=== PATIENT | male | born 1995 | race Caucasian/White ===

== ENCOUNTER 2016-09-29 06:54 | Emergency (ER) | payer OTHER ==
[2016-09-29 06:59] VITALS: BP 139/89; PULSE 82; RESP 18; TEMP 97.6
[2016-09-29] MEDS ORDERED: predniSONE 50 MG TAB PO STA (07:29)
[2016-09-29] MEDS ORDERED: FAMOTIDINE 20 MG TAB PO STA (07:29)
[2016-09-29] MEDS ORDERED: diphenhydrAMINE 50 MG/ML 1 ML VIAL IM STA (07:29)
--- NOTE | 2016-09-29 07:29 | ED ---
General Adult HPI - General Chief complaint: Skin/Abscess/Foreign Body Stated complaint: Hives Time Seen by Provider: 09/29/16 07:00 Source: patient, RN notes reviewed Mode of arrival: ambulatory Limitations: no limitations - History of Present Illness Initial comments: This is a 21-year-old male who presents emergency department because of hives and severe itching. Patient states about a week ago he had the hives he came to the emergency department and was treated for but the hives come back and chest and he can't stop itching. Patient denies any difficulty breathing or shortness of breath per patient denies any throat swelling or tightness in the throat. Patient denies any fever chills per patient denies changing any foods soaps or detergents but he states his been going home and reevaluate the situation. Patient denies any pain patient denies any headache patient denies chest pain patient denies abdominal pain. Patient denies any recent fever chills or cough. - Related Data Home Medications Medication Instructions Recorded Confirmed buPROPion HCL [buPROPion HCL SR] 1 tab PO DAILY 09/23/16 09/23/16 cloNIDine HCL [Catapres] 1 tab PO DAILY 09/23/16 09/23/16 Previous Rx's Medication Instructions Recorded diphenhydrAMINE [Benadryl] 50 mg PO QID PRN #20 capsule 09/23/16 methylPREDNISolone [Medrol Dose 4 mg PO DIRECTED #1 pack 09/23/16 Pack] predniSONE 40 mg PO DAILY #8 tab 09/29/16 Allergies Allergy/AdvReac Type Severity Reaction Status Date / Time No Known Allergies Allergy Verified 09/29/16 06:58 Review of Systems ROS Statement: Those systems with pertinent positive or pertinent negative responses have been documented in the HPI. ROS Other: All systems not noted in ROS Statement are negative. Past Medical History Past Medical History: No Reported History History of Any Multi-Drug Resistant Organisms: None Reported Past Surgical History: Orthopedic Surgery Additional Past Surgical History / Comment(s): LEFT FOREARM sx 2009 Past Psychological History: Bipolar Smoking Status: Current every day smoker Past Alcohol Use History: None Reported Past Drug Use History: Marijuana General Exam - General Exam Comments Initial Comments: GENERAL: Patient is well-developed and well-nourished. Patient is nontoxic and well- hydrated and is in mild distress. ENT: Neck is soft and supple. No significant lymphadenopathy is noted. Oropharynx is clear. Moist mucous membranes. EYES: The sclera were anicteric and conjunctiva were pink and moist. Extraocular movements were intact and pupils were equal round and reactive to light. PULMONARY: Unlabored respirations. Good breath sounds bilaterally. No audible rales rhonchi or wheezing was noted. CARDIOVASCULAR: There is a regular rate and rhythm without any murmurs gallops or rubs. ABDOMEN: Soft and nontender with normal bowel sounds. No palpable organomegaly was noted. There is no palpable pulsatile mass. SKIN: Patient has hives diffusely on his back arms and chest and abdomen. NEUROLOGIC: Patient is alert and oriented x3. MUSCULOSKELETAL: Normal extremities with adequate strength and full range of motion LYMPHATICS: No significant lymphadenopathy is noted PSYCHIATRIC: Normal psychiatric evaluation. Limitations: no limitations Course Vital Signs 09/29/16 06:57 Temperature 97.6 F Pulse Rate 82 Respiratory 18 Rate Blood Pressure 139/89 O2 Sat by Pulse 99 Oximetry Disposition Clinical Impression: Allergic reaction Disposition: HOME SELF-CARE Instructions: Allergies (ED) Additional Instructions: Patient should use Benadryl when necessary for itching Prescriptions: predniSONE 40 mg PO DAILY #8 tab Referrals: Ulises Robert MD [Primary Care Provider] - 1-2 days
== END 2016-09-29 07:52 | disposition home or self-care (01) ==
LOC: EC 06:54
DX: T78.40XA Allergy, unspecified, initial encounter (principal); L50.9 Urticaria, unspecified; Z79.899 Other long term (current) drug therapy; F31.9 Bipolar disorder, unspecified; F17.200 Nicotine dependence, unspecified, uncomplicated; X58.XXXA Exposure to other specified factors, initial encounter
CPT/HCPCS: 96372; 99283; J1200; J7512

== ENCOUNTER 2016-10-05 11:15 | Emergency (ER) | payer OTHER ==
[2016-10-05] MEDS ORDERED: KETOROLAC 30 MG/ML 1 ML VIAL IVP STA (11:45)
[2016-10-05] MEDS ORDERED: diphenhydrAMINE 50 MG/ML 1 ML VIAL IVP STA (11:45)
[2016-10-05] MEDS ORDERED: SODIUM CHLORIDE 0.9% 1,000 ML IV STA (11:45)
[2016-10-05] MEDS ORDERED: FAMOTIDINE 20 MG/2 ML VIAL IV STA (12:21)
--- NOTE | 2016-10-05 12:21 | ED ---
Chest Pain HPI - General Chief Complaint: Chest Pain Stated Complaint: Chest pain Time Seen by Provider: 10/05/16 11:36 Source: patient Mode of arrival: wheelchair Limitations: no limitations - History of Present Illness Initial Comments: This 21-year-old white male presents with a complaint of some chest pain. This is in the midsternal region. His describes as a tightness. It seems radiate into his abdomen at times. Onset occurred yesterday. He states that it is intermittent in nature and is oftentimes very sharp and well last approximate 2- 3 seconds. Is worse with certain movements. He relates it is fairly severe in nature. He further relates that he's had a recent rash. This was diagnosed as hives approximately 12 days ago and then was also seen approximately 4 days ago. He initially is placed on Medrol Dosepak and then later prednisone. He states that these haven't seemed to help his rash. It is very pruritic in nature. It apparently coming ago. It is diffuse in nature but somewhat worse on his back. He denies any history DVT or PE. He denies any leg pain or swelling. He denies any known new recent medications other than taking an unknown cream for scabies last month. He denies any shortness of breath. No other complaints or modifying factors. - Related Data Home Medications Medication Instructions Recorded Confirmed buPROPion HCL [buPROPion HCL SR] 150 mg PO DAILY 09/23/16 10/05/16 cloNIDine HCL [Catapres] 0.1 mg PO DAILY 09/23/16 10/05/16 predniSONE 50 mg PO DAILY 10/05/16 10/05/16 Previous Rx's Medication Instructions Recorded diphenhydrAMINE [Benadryl] 50 mg PO QID PRN #20 capsule 09/23/16 Famotidine [Pepcid] 20 mg PO BID #20 tablet 10/05/16 hydrOXYzine HCL [Atarax] 50 mg PO QID PRN #30 tab 10/05/16 traMADol HCl [Ultram] 50 - 100 mg PO Q6H PRN #15 tab 10/05/16 Allergies Allergy/AdvReac Type Severity Reaction Status Date / Time No Known Allergies Allergy Verified 10/05/16 11:31 Review of Systems ROS Statement: Those systems with pertinent positive or pertinent negative responses have been documented in the HPI. ROS Other: All systems not noted in ROS Statement are negative. Past Medical History Past Medical History: No Reported History History of Any Multi-Drug Resistant Organisms: None Reported Past Surgical History: Orthopedic Surgery Additional Past Surgical History / Comment(s): LEFT FOREARM sx 2009 Past Psychological History: Bipolar Smoking Status: Current every day smoker Past Alcohol Use History: None Reported Past Drug Use History: Marijuana General Exam - General Exam Comments Initial Comments: GENERAL: The patient is well nourished and well hydrated. VITAL SIGNS: Heart rate, blood pressure, respiratory rate reviewed as recorded in nurse's notes. EYES: Pupils are round and reactive. Extraocular movements are intact. No conjunctival / lid redness or swelling. ENT: No external evidence of injury, swelling, or ecchymosis. Airway is patent. Throat is clear. NECK: Nontender. No swelling or evidence of injury. No subcutaneous emphysema. Trachea is midline. No thyroid mass. HEART: Regular rate and rhythm. Good peripheral pulses. LUNGS/CHEST: Breath sounds clear and equal bilaterally. No rales, rhonchi, or wheezes. No ecchymosis, subcutaneous emphysema, or tenderness. ABDOMEN: Abdomen soft without tenderness. No palpable masses or organomegaly. No peritoneal signs. No abdominal wall swelling or ecchymosis. EXTREMITIES: No extremity tenderness. Normal muscle tone and function. No thoracolumbar tenderness. NEUROLOGIC: Sensation is grossly intact. Cranial nerve exam reveals face is symmetrical, tongue is midline, speech is clear. SKIN: There is a diffuse hive-like rash diffusely. PSYCHIATRIC: Alert and oriented. Appropriate behavior and judgment. Limitations: no limitations Course Vital Signs 10/05/16 11:23 Temperature 97.2 F L Pulse Rate 92 Respiratory 16 Rate Blood Pressure 140/94 O2 Sat by Pulse 97 Oximetry Chest Pain MDM - MDM The patient was seen and examined. All diagnostics were reviewed. An IV is started and he does receive some Benadryl as well as some Toradol and Pepcid. The EKG shows a normal sinus rhythm with a sinus arrhythmia at a rate of 79. There is no acute ST-T wave changes identified. There is no evidence of pericarditis. The [place] interval is 146, QRS duration is 96, and QTc interval is 399. The chest x-ray does not show any acute process. The laboratory showed an elevation of the white blood cell count at 22.9. The exact symptomatology of his symptom complex is not definitively determined. It does appear that he does have hives. These are much improved with the Benadryl and Pepcid. The possibility of this being related to a viral exanthem certainly is possible as well. Is really felt as though he may have a degree of pleuritis which could be viral in nature. The possibility of bronchitis as possible. The leukocytosis may be related to steroid use as well. Nevertheless, it is felt as though he may benefit from an embedded trial and follow up with primary care physician and dermatology. He is agreeable to this plan and leaves in no distress. He's much improved on recheck. Disposition Clinical Impression: Chest pain, Rash, Hives, Leukocytosis, Hypertension Disposition: HOME SELF-CARE Condition: Good Instructions: Chest Pain (ED), Pleurisy (ED), Acute Rash (ED), Hypertension (ED ) Additional Instructions: Please stop the Benadryl. Prescriptions: Famotidine [Pepcid] 20 mg PO BID #20 tablet hydrOXYzine HCL [Atarax] 50 mg PO QID PRN #30 tab PRN Reason: Itching traMADol HCl [Ultram] 50 - 100 mg PO Q6H PRN #15 tab PRN Reason: Pain Referrals: Ulises Robert MD [Primary Care Provider] - 1-2 days Gregory Lucero MD [STAFF PHYSICIAN] - 10/08/16 Time of Disposition: 13:58
[2016-10-05 12:51] LABS: Basophils # (A) 0.1 k/uL (0-0.2); Basophils % (A) 0 %; CH 26.1; CHCM 32.9; Eosinophils # (A) 0.1 k/uL (0-0.7); Eosinophils % (A) 1 %; HCT 52.6 % (39.0-53.0); HDW 2.35; HGB 17.1 gm/dL (13.0-17.5); Luc # (Auto) 0.17; Luc % (Auto) 1; Lymphocytes # (A) 4.2 k/uL (1.0-4.8); Lymphocytes % (A) 18 %; MCH 25.9 pg (25.0-35.0); MCHC 32.6 g/dL (31.0-37.0); MCV 79.6 fL (80.0-100.0); Mean Platelet Volume 6.8; Monocytes # (A) 0.9 k/uL (0-1.0); Monocytes % (A) 4 %; Neutrophils # (A) 17.5 k/uL (1.3-7.7); Neutrophils % (A) 77 %; RDW 12.9 % (11.5-15.5); WBC 22.9 k/uL (3.8-10.6); WBC (Perox) 23.08
[2016-10-05 12:55] LABS: Partial Thromboplastin Time 23.1 sec (22.0-30.0); Prothrombin Time 10.4 sec (9.0-12.0)
[2016-10-05 13:01] LABS: ALT 56 U/L (21-72); AST 22 U/L (17-59); Alkaline Phosphatase 71 U/L (38-126); Anion Gap 10 mmol/L; Blood Urea Nitrogen 19 mg/dL (9-20); Calcium 9.2 mg/dL (8.4-10.2); Carbon Dioxide 27 mmol/L (22-30); Chloride 104 mmol/L (98-107); Glucose 93 mg/dL (74-99); Magnesium 1.8 mg/dL (1.6-2.3); Non-African American GFR(MDRD) >60 (>60 ml/min/1.73 sqM); Potassium 3.8 mmol/L (3.5-5.1); Sodium 141 mmol/L (137-145); Total Bilirubin 0.5 mg/dL (0.2-1.3); Total Protein 6.6 g/dL (6.3-8.2)
--- NOTE | 2016-10-05 13:02 | XR ---
EXAMINATION TYPE: XR chest 2V DATE OF EXAM: 10/05/2016 12:59 PM COMPARISON: NONE HISTORY: Chest pain for 2 days TECHNIQUE: Frontal and lateral views of the chest are obtained. FINDINGS: There is no focal air space opacity, pleural effusion, or pneumothorax seen. The cardiac silhouette size is within normal limits. The osseous structures are intact. IMPRESSION: No acute cardiopulmonary process.
[2016-10-05 13:11] LABS: Creatine Kinase 31 U/L (55-170)
[2016-10-05 13:24] LABS: Creatine Kinase MB 0.2 ng/mL (0.0-2.4); Troponin I <0.012 ng/mL (0.000-0.034)
[2016-10-05 14:26] VITALS: BP 136/80; PULSE 85; RESP 18; TEMP 98.2
== END 2016-10-05 14:19 | disposition home or self-care (01) ==
LOC: EC 11:15
DX: R07.89 Other chest pain (principal); I10 Essential (primary) hypertension; D72.829 Elevated white blood cell count, unspecified; R21 Rash and other nonspecific skin eruption; F17.200 Nicotine dependence, unspecified, uncomplicated; Z79.52 Long term (current) use of systemic steroids; Z79.899 Other long term (current) drug therapy
CPT/HCPCS: 99285; 96374; 96375 ×2; 96361 ×2; 36415; 93005; 80053; 82550; 82553; 83735; 84484; 85025; 85610; 85730; 71020; J1200; J1885

== ENCOUNTER 2016-10-07 20:32 | Observation (INO) | payer OTHER ==
[2016-10-07] MEDS ORDERED: SODIUM CHLORIDE 0.9% 1,000 ML IV ONE (21:27)
[2016-10-07 21:55] LABS: Basophils # (A) 0.1 k/uL (0-0.2); Basophils % (A) 0 %; CH 26.4; CHCM 34.2; Eosinophils # (A) 0.2 k/uL (0-0.7); Eosinophils % (A) 1 %; HCT 48.9 % (39.0-53.0); HDW 2.31; HGB 16.4 gm/dL (13.0-17.5); Luc # (Auto) 0.12; Luc % (Auto) 1; Lymphocytes # (A) 2.5 k/uL (1.0-4.8); Lymphocytes % (A) 14 %; MCHC 33.5 g/dL (31.0-37.0); MCV 77.4 fL (80.0-100.0); Mean Platelet Volume 7.5; Monocytes # (A) 0.5 k/uL (0-1.0); Monocytes % (A) 3 %; Neutrophils # (A) 14.6 k/uL (1.3-7.7); Neutrophils % (A) 81 %; RBC 6.31 m/uL (4.30-5.90); RDW 12.6 % (11.5-15.5); WBC (Perox) 17.48
[2016-10-07 22:01] LABS: INR 1.2 (<1.1); Prothrombin Time 11.6 sec (9.0-12.0)
[2016-10-07 22:04] LABS: ALT 40 U/L (21-72); AST 18 U/L (17-59); Alkaline Phosphatase 66 U/L (38-126); Anion Gap 10 mmol/L; Blood Urea Nitrogen 16 mg/dL (9-20); Calcium 9.3 mg/dL (8.4-10.2); Carbon Dioxide 28 mmol/L (22-30); Chloride 98 mmol/L (98-107); Glucose 99 mg/dL (74-99); Non-African American GFR(MDRD) >60 (>60 ml/min/1.73 sqM); Potassium 4.3 mmol/L (3.5-5.1); Sodium 136 mmol/L (137-145); Total Bilirubin 1.9 mg/dL (0.2-1.3); Total Protein 6.7 g/dL (6.3-8.2)
[2016-10-07] MEDS ORDERED: KETOROLAC 30 MG/ML 1 ML VIAL IVP STA (22:48)
--- NOTE | 2016-10-07 22:49 | ED ---
General Adult HPI - General Chief complaint: Fever Stated complaint: Hives - Revisit Time Seen by Provider: 10/07/16 20:53 Source: patient, family, RN notes reviewed, old records reviewed Mode of arrival: wheelchair Limitations: physical limitation - History of Present Illness Initial comments: 21-year-old male presenting for diffuse body rash. Patient states he can see multiple times for rash over the past couple weeks. He states it started as evaluation after scabies he was treated for this and that is improved. However he has had several return of hives that she's been evaluated for. He states that a new type of rash began suddenly yesterday and has spread over his entire body. This rash is now currently painful. States also had some fevers and chills associated with this. He denies any nausea or vomiting. He denies any chest pain or shortness of breath. He was recently on steroids which did not seem to improve his prior rashes.. - Related Data Home Medications Medication Instructions Recorded Confirmed cloNIDine HCL [Catapres] 0.1 mg PO DAILY 09/23/16 10/07/16 diphenhydrAMINE [Benadryl] 50 mg PO Q4H 10/07/16 10/07/16 Previous Rx's Medication Instructions Recorded Famotidine [Pepcid] 20 mg PO BID #20 tablet 10/05/16 hydrOXYzine HCL [Atarax] 50 mg PO QID PRN #30 tab 10/05/16 Allergies Allergy/AdvReac Type Severity Reaction Status Date / Time No Known Allergies Allergy Verified 10/07/16 20:49 Review of Systems ROS Statement: Those systems with pertinent positive or pertinent negative responses have been documented in the HPI. ROS Other: All systems not noted in ROS Statement are negative. Past Medical History Past Medical History: No Reported History History of Any Multi-Drug Resistant Organisms: None Reported Past Surgical History: Orthopedic Surgery Additional Past Surgical History / Comment(s): LEFT FOREARM sx 2009 Past Psychological History: Bipolar Smoking Status: Current every day smoker Past Alcohol Use History: None Reported Past Drug Use History: Marijuana General Exam - General Exam Comments Initial Comments: General: Awake and Alert. No acute distress. Does not appear acutely ill. Eyes: KORTNEY, EOM intact. No nystagmus. No scleral icterus. HENT: Atraumatic, normocephalic. Mucous membranes moist. Trachea midline. Neck: The neck is supple, there is no tenderness or JVD. Cardiovascular: Regular rate and rhythm. No murmur, rub, or gallop is appreciated. Distal pulses intact. Respiratory: Lungs are clear to auscultation bilaterally. No wheezes, rales, rhonchi. No respiratory distress. Gastrointestinal: Soft, Nontender. No rebound or guarding. Non-distended. No masses or organomegaly noted. No CVA tenderness. Musculoskeletal: No tenderness. Normal ROM. No gross deformity. No strength deficits. Neurological: A&Ox3. CN II-XII grossly intact, There are no obvious motor or sensory deficits. Coordination appears grossly intact. Speech is normal. Skin: There is diffuse body involvement of all extremities and abdomen and torso of a papular rash with red borders and internal blanching consistent with target lesions of erythema multiforme. There is no oral mucosal involvement at this time. No other rash is noted. Psychiatric: Cooperative, appropriate mood & affect, normal judgment. Limitations: physical limitation Course Vital Signs 10/07/16 20:46 Temperature 101.2 F H Pulse Rate 111 H Respiratory 18 Rate Blood Pressure 150/83 O2 Sat by Pulse 98 Oximetry Medical Decision Making - Medical Decision Making 21-year-old male presenting for diffuse rash consistent with erythema multiforme. Uncertain inciting factor for this rash. Patient has had multiple different medications over the past several weeks for various visits to the ER. He was also recently restarted on 2 medications for bipolar disorder. He does not believe Lamictal as well as medications. Lab workup was performed showing significant leukocytosis. Is possible there is underlying infectious etiology of this condition today about his likely viral. Patient started with IV fluids and anti-inflammatories. Although patient meets for SIRS criteria, sepsis is questionable at this time. Pt is started empirically on acyclovir and IVF. Will require further monitoring and evaluation. Given uncertain etiology and diffuse involvement of this rash plan for admission for further evaluation and treatment. Patient was reevaluated, remained stable during his course in the ED. Updated on results and plan for admission. Patient is agreeable with this plan. Page placed to Dr. Mata. Patient information and plan signed out overnight physician Dr. Barrett pending callback from Dr. Mata. Will defer empiric antibiotic or steroid therapy to admitting team. - Lab Data Result diagrams: 10/07/16 21:45 10/07/16 21:45 Lab Results 10/07/16 10/07/16 10/07/16 Range/Units 21:45 21:45 21:45 WBC 18.0 H (3.8-10.6) k/uL RBC 6.31 H (4.30-5.90) m/uL Hgb 16.4 (13.0-17.5) gm/dL Hct 48.9 (39.0-53.0) % MCV 77.4 L (80.0-100.0) fL MCH 26.0 (25.0-35.0) pg MCHC 33.5 (31.0-37.0) g/dL RDW 12.6 (11.5-15.5) % Plt Count 245 (150-450) k/uL Neutrophils % 81 % Lymphocytes % 14 % Monocytes % 3 % Eosinophils % 1 % Basophils % 0 % Neutrophils # 14.6 H (1.3-7.7) k/uL Lymphocytes # 2.5 (1.0-4.8) k/uL Monocytes # 0.5 (0-1.0) k/uL Eosinophils # 0.2 (0-0.7) k/uL Basophils # 0.1 (0-0.2) k/uL PT 11.6 (9.0-12.0) sec INR 1.2 (<1.1) Sodium 136 L (137-145) mmol/L Potassium 4.3 (3.5-5.1) mmol/L Chloride 98 (98-107) mmol/L Carbon Dioxide 28 (22-30) mmol/L Anion Gap 10 mmol/L BUN 16 (9-20) mg/dL Creatinine 0.93 (0.66-1.25) mg/dL Est GFR (MDRD) Af Amer >60 (>60 ml/min/1.73 sqM) Est GFR (MDRD) Non-Af >60 (>60 ml/min/1.73 sqM) Glucose 99 (74-99) mg/dL Calcium 9.3 (8.4-10.2) mg/dL Total Bilirubin 1.9 H (0.2-1.3) mg/dL AST 18 (17-59) U/L ALT 40 (21-72) U/L Alkaline Phosphatase 66 (38-126) U/L Total Protein 6.7 (6.3-8.2) g/dL Albumin 3.9 (3.5-5.0) g/dL Disposition Clinical Impression: Erythema multiforme, Fever, Leukocytosis Disposition: ADMITTED IP TO THIS HOSP Condition: Stable Referrals: Ulises Robert MD [Primary Care Provider] - 1-2 days Decision to Admit Reason: Admit from [facility]
[2016-10-07] MEDS ORDERED: ACYCLOVIR SODIUM 750 MG in SODIUM CHLORIDE 0.9% 250 ML IV ONE (22:53)
[2016-10-07] MEDS ORDERED: MORPHINE SULFATE 4 MG/ML SYRINGE IV PRN (23:04)
[2016-10-07] MEDS ORDERED: ACETAMINOPHEN TAB 325 MG TAB PO PRN (23:04)
[2016-10-07] MEDS ORDERED: NALOXONE 0.4 MG/ML 1 ML VIAL IV PRN (23:04)
[2016-10-08] MEDS: methylPREDNISolone SOD SUCCI 125 MG/2 ML VIAL IV SCH ×5 (01:16→23:06)
[2016-10-08] MEDS: HEPARIN SODIUM,PORCINE 5,000 UNIT/ML 1 ML VIAL SQ SCH ×4 (01:17→23:07)
[2016-10-08] MEDS: diphenhydrAMINE 50 MG CAP PO PRN ×4 (01:34→23:06)
[2016-10-08] MEDS: VANCOMYCIN 1,000 MG in SODIUM CHLORIDE 0.9% 250 ML IVPB ONE ×2 (02:06→03:12)
[2016-10-08] MEDS: CEFEPIME 2 GM in SODIUM CHLORIDE 0.9% 50 ML IVPB SCH ×2 (02:20→09:09)
[2016-10-08] MEDS: LACTATED RINGERS 1,000 ML IV SCH ×4 (05:13→19:44)
[2016-10-08 07:37] VITALS: RESP 16
[2016-10-08] MEDS: KETOROLAC 30 MG/ML 1 ML VIAL IVP PRN ×2 (07:58→16:45)
[2016-10-08 08:45] LABS: Basophils % (A) 0 %; CH 26.2; CHCM 33.3; Eosinophils % (A) 0 %; HDW 2.29; Luc # (Auto) 0.05; Luc % (Auto) 0; Lymphocytes % (A) 7 %; MCH 25.8 pg (25.0-35.0); MCHC 32.6 g/dL (31.0-37.0); MCV 79.1 fL (80.0-100.0); Mean Platelet Volume 7.5; Monocytes # (A) 0.3 k/uL (0-1.0); Monocytes % (A) 2 %; Neutrophils # (A) 12.7 k/uL (1.3-7.7); Neutrophils % (A) 90 %; RBC 5.82 m/uL (4.30-5.90); RDW 12.8 % (11.5-15.5); WBC 14.1 k/uL (3.8-10.6); WBC (Perox) 14.05
[2016-10-08 08:51] LABS: Anion Gap 9 mmol/L; Blood Urea Nitrogen 19 mg/dL (9-20); Carbon Dioxide 26 mmol/L (22-30); Chloride 104 mmol/L (98-107); Glucose 131 mg/dL (74-99); Magnesium 2.1 mg/dL (1.6-2.3); Non-African American GFR(MDRD) >60 (>60 ml/min/1.73 sqM); Phosphorous 3.8 mg/dL (2.5-4.5); Potassium 4.9 mmol/L (3.5-5.1); Sodium 139 mmol/L (137-145)
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
[2016-10-08] MEDS ORDERED: MENTHOL-CAMPHOR LOTION 222 APPLIC/222 ML BOTTLE TOPICAL PRN (11:03)
[2016-10-08 16:28] LABS: HSV I IgG Interp NEGATIVE (NEGATIVE); HSV II IgG Interp NEGATIVE (NEGATIVE)
[2016-10-08] MEDS: NICOTINE 21MG/24HR PATCH TRANSDERM SCH (16:45)
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
[2016-10-08] MEDS: SENNOSIDES-DOCUSATE SODIUM 1 EACH TAB PO SCH (19:44)
[2016-10-09] MEDS ORDERED: LACTULOSE 20 GM/30 ML CUP PO ONE (01:30)
[2016-10-09] MEDS ORDERED: ONDANSETRON 4 MG/2 ML VIAL IVP PRN (01:31)
[2016-10-09] MEDS: LACTATED RINGERS 1,000 ML IV SCH ×2 (02:22→08:57)
[2016-10-09] MEDS: methylPREDNISolone SOD SUCCI 125 MG/2 ML VIAL IV SCH ×2 (06:12→11:24)
[2016-10-09 07:43] LABS: HIV-1/HIV-2 Ab Screen NONREAC (NON REAC)
[2016-10-09] MEDS: HEPARIN SODIUM,PORCINE 5,000 UNIT/ML 1 ML VIAL SQ SCH (08:53)
[2016-10-09] MEDS: NICOTINE 21MG/24HR PATCH TRANSDERM SCH (08:54)
[2016-10-09] MEDS: KETOROLAC 30 MG/ML 1 ML VIAL IVP PRN (08:57)
[2016-10-09] MEDS: SENNOSIDES-DOCUSATE SODIUM 1 EACH TAB PO SCH ×2 (08:58→10:47)
[2016-10-09 15:48] VITALS: BP 147/92; PULSE 56; TEMP 98.1
--- NOTE | 2016-10-09 23:01 | P.PN ---
Subjective Principal diagnosis: rash 21-year-old male who has a history of ADHD and bipolar disorder presents to the emergency center feeling very poorly. His fiance approximately 3 weeks ago developed scabies from her work at [employer] and she and the patient were treated with [id number] pyrimethamine. The fiance completely recovered after sure. Pruritus. The patient also did well directly afterwards. He however now is developed a significant rash associated with generalized malaise and feeling quite poorly as well as some discomfort over his joints and his feet. He believes he may have had a low-grade fever but no severe chills or rigors. He this present time is denying headache acute visual change chest pain nausea or emesis difficulty chewing or swallowing. Doing somewhat better today after coming to hospital and receiving therapy. Given to the ER also and was given some topical therapy. feeling better today would like to go home there is more of a serpiginous rash. Objective - Vital Signs Vital signs: Vital Signs Temp 98.1 F 10/09/16 15:00 Pulse 56 L 10/09/16 15:00 Resp 16 10/09/16 15:00 BP 147/92 10/09/16 15:00 Pulse Ox 97 10/09/16 15:00 Intake & Output 10/09/16 10/09/16 10/10/16 06:59 18:59 06:59 Intake Total 920 Balance 920 Intake: IV 600 Lactated Ringers 1,000 ml 600 @ 150 mls/hr IV .Q6H40M [facility] Rx#:[id number] Oral 320 Other: Voiding Method Toilet Toilet # Voids 2 4 # Bowel Movements 1 - Exam HEENT: Anicteric conjunctiva are pink and moist nasal mucosa grossly intact without significant lesions, there is no thrush. There is no evidence of any irritation of the oral cavity or the conjunctiva Neck: The neck is supple without significant lymphadenopathy or thyromegaly. Lungs: Good bilateral air entry without significant crackles . There is no significant bronchial sounds. There is no egophony or dullness. Rare wheeze Heart: Regular rate and rhythm with an audible S1-S2, no S3 no S4. There is no significant murmur click or rub, PMI was nondisplaced. Abdomen: Positive bowel sounds soft and nontender without palpable masses or organomegaly. There was no guarding or rebound. Extremities: The upper extremities have excellent pulses they are symmetric, no significant petechiae or telangiectasia. No splinter hemorrhages were noted. The lower extremities are free from significant edema. The peripheral pulses were 2+ and symmetric. Neuro: Awake alert oriented to person place and time. There are no acute new gross focal sensory motor deficits. Skin: Patient is evidence of a widely distributed rash that is not confluent. There are evidence of a serpiginous rash with some clearing is noted from last evening. Apparently it's already improving since his admission. The palms and soles are spared. There is no evidence of any ulceration. The skin is not very tender. He does complain of some significant joint discomforts although is mobile to the restroom without great difficulty. much less uncomfortable today - Labs CBC & Chem 7: 10/08/16 08:14 10/08/16 08:14 Labs: Microbiology - Last 24 Hours (Table) 10/07/16 23:30 Blood Culture - Preliminary Blood No Growth after 24 hours Laboratory Results WBC 14.1 k/uL (3.8-10.6) H 10/08/16 08:14 RBC 5.82 m/uL (4.30-5.90) 10/08/16 08:14 Hgb 15.0 gm/dL (13.0-17.5) 10/08/16 08:14 Hct 46.0 % (39.0-53.0) 10/08/16 08:14 MCV 79.1 fL (80.0-100.0) L 10/08/16 08:14 MCH 25.8 pg (25.0-35.0) 10/08/16 08:14 MCHC 32.6 g/dL (31.0-37.0) 10/08/16 08:14 RDW 12.8 % (11.5-15.5) 10/08/16 08:14 Plt Count 215 k/uL (150-450) 10/08/16 08:14 Neutrophils % 90 % 10/08/16 08:14 Lymphocytes % 7 % 10/08/16 08:14 Monocytes % 2 % 10/08/16 08:14 Eosinophils % 0 % 10/08/16 08:14 Basophils % 0 % 10/08/16 08:14 Neutrophils # 12.7 k/uL (1.3-7.7) H 10/08/16 08:14 Lymphocytes # 1.0 k/uL (1.0-4.8) 10/08/16 08:14 Monocytes # 0.3 k/uL (0-1.0) 10/08/16 08:14 Eosinophils # 0.0 k/uL (0-0.7) 10/08/16 08:14 Basophils # 0.0 k/uL (0-0.2) 10/08/16 08:14 PT 11.6 sec (9.0-12.0) 10/07/16 21:45 INR 1.2 (<1.1) 10/07/16 21:45 Sodium 139 mmol/L (137-145) 10/08/16 08:14 Potassium 4.9 mmol/L (3.5-5.1) 10/08/16 08:14 Chloride 104 mmol/L (98-107) 10/08/16 08:14 Carbon Dioxide 26 mmol/L (22-30) 10/08/16 08:14 Anion Gap 9 mmol/L 10/08/16 08:14 BUN 19 mg/dL (9-20) 10/08/16 08:14 Creatinine 0.83 mg/dL (0.66-1.25) 10/08/16 08:14 Est GFR (MDRD) Af Amer >60 (>60 ml/min/1.73 sqM) 10/08/16 08:14 Est GFR (MDRD) Non-Af >60 (>60 ml/min/1.73 sqM) 10/08/16 08:14 Glucose 131 mg/dL (74-99) H 10/08/16 08:14 Plasma Lactic Acid Tevin 0.8 mmol/L (0.7-2.0) 10/07/16 23:30 Calcium 9.0 mg/dL (8.4-10.2) 10/08/16 08:14 Phosphorus 3.8 mg/dL (2.5-4.5) 10/08/16 08:14 Magnesium 2.1 mg/dL (1.6-2.3) 10/08/16 08:14 Total Bilirubin 1.9 mg/dL (0.2-1.3) H 10/07/16 21:45 AST 18 U/L (17-59) 10/07/16 21:45 ALT 40 U/L (21-72) 10/07/16 21:45 Alkaline Phosphatase 66 U/L (38-126) 10/07/16 21:45 Total Protein 6.7 g/dL (6.3-8.2) 10/07/16 21:45 Albumin 3.9 g/dL (3.5-5.0) 10/07/16 21:45 HSV I IgG Ab <0.2 AI 10/07/16 21:45 HSV I IgG Interpret NEGATIVE (NEGATIVE) 10/07/16 21:45 HSV II IgG <0.2 AI 10/07/16 21:45 HSV II IgG Interpret NEGATIVE (NEGATIVE) 10/07/16 21:45 HIV-1 Ab Supplemental TNP 10/08/16 08:14 HIV-2 Ab Supplemental TNP 10/08/16 08:14 HIV 1&2 Ag/Ab, 4th Gen NONREAC (NON REAC) 10/08/16 08:14 Microbiology 10/07/16 23:30 Blood Blood Culture - Preliminary No Growth after 24 hours Assessment and Plan (1) Erythema multiforme Narrative/Plan: 21-year-old male who is had a significant series of events recently. The fiangie had scabies and constantly they were self treated with over-the- counter product. The fiangie has done well and has had no further difficulties. Patient hours been having ongoing difficulties and is seeing his primary care physician. He was placed on clonidine for treatment of some hypertension as well as of ADHD. Since then he has not been doing very well. He feels poorly. He has joint complaints. He never did develop significant rash as noted. Yesterday apparently was much worse than it is today after steroid therapy has been started. Other than some ongoing discomfort he is feeling better today. The rash is improving. Appears to be somewhat steroid responsive. The concern of his erythema multiforme is considerable. the patient has negative herpesvirus testing. HIV testing is Likely he had an antecedent viral The patient does not appear to have Jerez-Andre or toxic epidermal necrolysis. responding well to current therapy. Mine [place] primary care physician. regarding therapy for bipolar disease. Status: Acute (2) Drug eruption Status: Acute (3) Leukocytosis Status: Acute (4) Fever Status: Acute
--- NOTE | 2016-10-10 07:53 | DS ---
DATE OF ADMISSION: 10/07/2016 DATE OF DISCHARGE: 10/09/2016 FINAL DIAGNOSES: 1. Possible generalized tenia versicolor. 2. Possibly acute on allergic reaction, cause unknown. 3. Attention deficit hyperactivity disorder. 4. Acute severe allergic reaction could be with a systemic inflammatory response syndrome like presentation with no evidence of infection. HOSPITAL COURSE: This patient presented with severe hives. There were different possibilities, but patient after getting better again had a flare-up which looked a bit like tenia corporis. Hence, nystatin cream has been given. Patient did respond otherwise to Benadryl and steroids initially. More details in my note. CONSULTATION: Dr. Perez, infectious disease. On examination, cicatricle rash on the body with itching. DISCHARGE MEDICATIONS: 1. Pepcid 20 mg b.i.d. 2. Nicotine patch 20 mg 14 days. 3. Nystatin cream topical b.i.d. 4. Prednisone taper. Follow up with Dr. Robert in 3 days. Additionally patient herpes simplex virus and HIV testing results negative.
== END 2016-10-09 16:18 | disposition home or self-care (01) ==
LOC: EC 20:32 → 4MS4W 23:04 → INTOOBSV 23:04
PROVIDERS: ADMIT Hospitalist; ATTEND Hospitalist
DX: L50.9 Urticaria, unspecified (principal); L29.9 Pruritus, unspecified; I10 Essential (primary) hypertension; D72.829 Elevated white blood cell count, unspecified; B36.0 Pityriasis versicolor; R50.9 Fever, unspecified; R00.0 Tachycardia, unspecified; M25.50 Pain in unspecified joint; R53.81 Other malaise; Z20.89 Contact with and (suspected) exposure to other communicable diseases; R07.0 Pain in throat; F31.9 Bipolar disorder, unspecified; F90.9 Attention-deficit hyperactivity disorder, unspecified type; M79.672 Pain in left foot; M79.671 Pain in right foot; F12.90 Cannabis use, unspecified, uncomplicated; F17.200 Nicotine dependence, unspecified, uncomplicated; Z79.899 Other long term (current) drug therapy; Z87.828 Personal history of other (healed) physical injury and trauma
CPT/HCPCS: 96361; 96365; 96375; 99285; 36415; 80053; 80048; 86694; 83605; 83735; 84100; 85025 ×2; 85610; 87040; 87389; 86695; 86696; G0378 ×3; S4990; J3370; J2270; J1644; J2930 ×2; J0133; J0692; J1885 ×3; 96366; 96367; 96372; 96376

== ENCOUNTER 2016-10-10 00:12 | Observation (INO) | payer OTHER ==
[2016-10-10] MEDS ORDERED: methylPREDNISolone SOD SUCCI 125 MG/2 ML VIAL IV STA (00:57)
[2016-10-10] MEDS ORDERED: hydrOXYzine HCL 25 MG TAB PO STA (00:59)
[2016-10-10] MEDS ORDERED: FAMOTIDINE 20 MG/2 ML VIAL IV STA (00:59)
[2016-10-10] MEDS ORDERED: NALOXONE 0.4 MG/ML 1 ML VIAL IV PRN (01:00)
[2016-10-10] MEDS ORDERED: SODIUM CHLORIDE 0.9% 1,000 ML IV SCH (01:00)
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
[2016-10-10] MEDS ORDERED: diphenhydrAMINE 50 MG/ML 1 ML VIAL IVP PRN (01:01)
[2016-10-10 01:19] VITALS: BP 141/67; PULSE 85; RESP 18; TEMP 97.7
[2016-10-10] MEDS ORDERED: methylPREDNISolone SOD SUCCI 125 MG/2 ML VIAL IV SCH (08:00)
[2016-10-10] MEDS ORDERED: FAMOTIDINE 20 MG/2 ML VIAL IV SCH (09:00)
== END 2016-10-10 01:31 | disposition left against medical advice (07) ==
LOC: EC 00:12 → 3OBS 00:59
PROVIDERS: ADMIT Hospitalist; ATTEND Hospitalist
DX: L51.9 Erythema multiforme, unspecified (principal); R07.89 Other chest pain; R21 Rash and other nonspecific skin eruption; F17.200 Nicotine dependence, unspecified, uncomplicated; F31.9 Bipolar disorder, unspecified; Z79.899 Other long term (current) drug therapy; T50.905A Adverse effect of unspecified drugs, medicaments and biological substances, initial encounter; Y92.019 Unspecified place in single-family (private) house as the place of occurrence of the external cause
CPT/HCPCS: 99284; 96374; 96375; G0378; J2930

== ENCOUNTER 2017-03-09 23:39 | Emergency (ER) | payer OTHER ==
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
[2017-03-10] MEDS ORDERED: diphenhydrAMINE 50 MG CAP PO STA (00:59)
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
[2017-03-10 01:42] VITALS: BP 111/59; PULSE 77; RESP 18; TEMP 98.4
== END 2017-03-10 01:41 | disposition home or self-care (01) ==
LOC: EC 23:39
DX: S01.112A Laceration without foreign body of left eyelid and periocular area, initial encounter (principal); S80.01XA Contusion of right knee, initial encounter; F17.200 Nicotine dependence, unspecified, uncomplicated; Y35.891A Legal intervention involving other specified means, law enforcement official injured, initial encounter
CPT/HCPCS: 70450; 70486; 99283